=== PATIENT | male | born 1990 | race Caucasian/White ===

== ENCOUNTER 2021-04-19 13:05 | Outpatient (CLI) | payer OTHER, SELFPAY ==
--- NOTE | 2021-04-19 13:11 | CT_ITS ---
HISTORY: CALCULUS OF KIDNEY. TECHNIQUE: Helically acquired images were obtained of the abdomen and pelvis without oral or IV contrast as per renal stone protocol. A radiation dose optimization technique was used for this scan. # of images incl. paperwork: [phone]. COMPARISON: None. FINDINGS: LUNG BASES: Clear. BOWEL: Bowel including appendix nondilated. No focal pericolonic inflammatory change observed. PERITONEUM: No significant ascites. LIVER/BILIARY TRACT: Unremarkable liver.Gallbladder present. SPLEEN: Non-enlarged. PANCREAS: No peripancreatic inflammation. KIDNEYS AND URETERS: Minimal left hydronephrosis and perinephric stranding secondary to a 2 mm distal ureteral calculus. No right nephrolithiasis or obstructing ureterolithiasis. ADRENAL GLANDS: Non-enlarged. VESSELS: No abdominal aortic aneurysm. PELVIC ORGANS: Unremarkable. BONES: Intact. CT/Abdomen/Pelvis without Cont IMPRESSION: Very mild left hydronephrosis secondary to a 2 mm distal ureteral calculus. Individualized dose optimization techniques were used for this CT. at 1343 Reported and signed by: Ama Crowe MD Electronically Signed: Ama Crowe MD at 13:42 EST ,
== END 2021-04-19 23:59 | disposition home or self-care (01) ==
PROVIDERS: Referring Provider Urology; Visit Provider Urology
DX: N20.0 Calculus of kidney (principal)
CPT/HCPCS: 74176

== ENCOUNTER 2021-04-25 06:08 | Day surgery (SDC) | payer OTHER, SELFPAY ==
[2021-04-25] VITALS (8 sets, daily range): BP systolic 107–123; BP diastolic 70–87; PULSE 49–76; RESP 8–18; TEMP 36.5–36.9; O2SAT 53–100; BMI 26.6
[2021-04-25] MEDS: Lactated Ringers 1,000 ML 30 ML IV (07:04)
[2021-04-25] MEDS: Cefazolin 2 GM in 0.9% Normal Saline 100 ML IV (08:46)
--- NOTE | 2021-04-25 08:50 | CALC_PTH ---
PATIENT: KRISSY SCHWARTZ [place] [facility] [place][id number] AGE/SX: 30/M ROOM: RE04/25/[address]: Dr. Dewey Godfrey MD : 1990 BED: DIS: 04/25/2021 SPEC #: [id number] RECD: 04/25/21 10:22 STATUS: EVA HOLLANDKarina #: [id number] VASILIY: 04/25/21 08:[address]: Dewey Godfrey DEPT: SURGICAL PATHOLOGY RECD BY: Tootie Patel ENTERED: 04/25/21 12:06 SP TYPE: Calculi OTHR DR: Enma Primary Care Phys Tissues: CALCULI Procedures: Surgery Specimen Level I HEADER OPERATION: Ureteroscopy, basket extraction of left ureteral stone PRE-OP DIAGNOSIS: Left ureteral calculi TISSUE SUBMITTED: Left ureteral calculi for analysis GROSS DIAGNOSIS Fragments of stone, clinically left ureteral calculi, submitted for analysis. SJ:calli 04/26/2021 COMMENT The calculus is submitted in its entirety for chemical stone analysis. The results from this study will be reported separately. GROSS DESCRIPTION Received without fixative labeled with the patient's name and designated left ureteral calculi. The specimen consists of two irregular light del angel fragments of stone measuring in aggregate 0.2 x <0.1 x <0.1 cm. The entire specimen is submitted for stone analysis. / AM:calli 04/25/2021 CPT: 99789
--- NOTE | 2021-04-25 09:19 | PCM.HP.STD ---
HPI - General HPI Narrative KRISSY SCHWARTZ, is a 30 M who presents distal left ureteral calculi PFSH Medical History (Updated 04/25/21 @ 09:[address] Dewey Godfrey MD) Alcohol use Anxiety Asthma Back pain CPAP (continuous positive airway pressure) dependence Depression History of IBS Non-smoker Shortness of breath on exertion Syncope Wears dentures Wears glasses Home Medications tramadol 50 mg PO Q6H PRN 04/23/21 [History Last Taken Unknown] cephalexin 500 mg PO BID #6 cap 04/25/21 [Rx Last Taken Unknown] oxycodone-acetaminophen 1 tab PO Q6H PRN 7 Days #14 tab 04/25/21 [Rx Last Taken Unknown] phenazopyridine [Pyridium] 100 mg PO TID PRN #10 tab 04/25/21 [Rx Last Taken Unknown] Allergy/AdvReac Type Severity Reaction Status Date / Time No Known Allergies Allergy Verified 04/25/21 06:44 Surgical History (Updated 04/23/21 @ 11:30 by Katelin Bourgeois) Hx of colonoscopy Social History Smoking Status: Never smoker Vital Signs Vital Signs Vital Signs: 04/25/21 06:52 Temperature 97.9 F Temperature Source Temporal Pulse Rate 49 L Respiratory Rate 16 Respiratory Pattern Normal Blood Pressure 116/75 Blood Pressure Mean 88 Blood Pressure Source Monitor Blood Pressure Position Semi-Fowlers Blood Pressure Location Right Arm Pulse Ox 100 Oxygen Delivery Method Room Air Weight Weight: 79.379 kg Body Mass Index (BMI) 26.6
--- NOTE | 2021-04-25 09:21 | PCM.DC ---
Discharge Instructions Diet Discharge Diet: No restrictions Activity Discharge Activity: Return to Normal Activity and May Not Drive (while taking narcotic pain medications.) Dressing / Incision Call your doctor if you observe: Fever of 101 or Higher Follow Up Care Please Follow Up With: Dewey Godfrey MD When: Call [phone] for an appointment Test Results: Test results from this visit will be discussed in further detail at your follow-up appointment, if applicable. Discharge Plan Admission Primary Reason for Your Visit: ureteroscopy remove stone and stent Attending Provider: Dewey Godfrey Primary Care Provider: Care Physician,Enma Primary Discharge Orders/Prescriptions Prescriptions: New cephalexin 500 mg capsule 500 mg PO BID Qty: 6 RF: 0 phenazopyridine [Pyridium] 100 mg tablet 100 mg PO TID PRN (Reason: pain) Qty: 10 RF: 0 oxycodone-acetaminophen 5-325 mg tablet 1 tab PO Q6H PRN (Reason: pain) 7 Days Qty: 14 RF: 0 No Action tramadol 50 mg Tablet 50 mg PO Q6H PRN (Reason: Pain) RF: 0 Referrals / Follow Up: Dewey Godfrey MD [STAFF PHYSICIAN] - Care Physician,No Primary [Primary Care Provider] - Disposition Disposition (needs filled in before D/C Order can be placed): Home, Self Care
--- NOTE | 2021-04-25 09:22 | PCM.OPRPT ---
Report of Operation Date of Procedure: 04/25/21 Pre-Operative Diagnosis: Left ureteral stricture, left ureteral calculi Post-Operative Diagnosis: Same Surgery/Procedure Performed:: Cystoscopy balloon dilation of the ureteral stricture, ureteroscopy basket extraction of stone and placement of stent Description of Surgical Findings:: This is a patient who presents to the hospital for treatment for an obstructing distal ureter calculi. I discussed with the patient how the surgery would be performed and we reviewed the risks and benefits of the surgery. The risk and benefits include the risk of failure to remove the stone completely and that the patient may need multiple procedures. We discussed the risk of an infection, the risk of bleeding. We discussed the very rare risk of serious complicated injury to the ureter. The patient understands that if the stone is not able to be removed safely that we may abort the procedure and place a stent. After full discussion and all questions address with the patient the consent form was signed the side was marked appropriately and the patient was taken back to the operating room for the procedure. The patient was taken back to the operating room. After induction of anesthesia by the anesthesiology team the patient was placed in dorsolithotomy position. The genitals were prepped and draped in usual sterile fashion. I went into the bladder with a 21 [place] rigid cystourethroscope through the urethra. Upon entering the bladder I inspected the trigone the left and right ureteral orifice and the bladder itself. I then cannulated the LEFT ureteral orifice and advanced a 0.038 Glidewire up into the kidney. Then over the Glidewire I advanced a 5 Fr Ureteral catheter and performed a retrograde pyelogram with about 10cc of contrast, to delineate the anatomy and identify the stone location. Then a ureteral balloon dilator was advanced over the wire and the distal ureter was balloon dilated with a 12 Fr x 5cm balloon dilator. After 3 minutes of dilating the ureter the balloon was backloaded off the 0.038 glidewire then the safety wire was left in place. I then placed a second 0.038 Guidewire as a working wire and over the working 0.038 guidewire I went in with the kd rigide 7.5fr ureteroscope. I was able to go inside with the 7.5Fr kd rigid utereroscope and I pulled out the working guidewire and then through the 7.5 fr simirigid ureteroscope I engage the 3mm stone in the distal ureter with a basket and pulled the stone out of the ureter. A retrograde pyelogram was performed with 10cc of contrast and no extravasation of contrast or perforation was identified in the ureter there was some mild irritation of the ureter where the stone was located. I then backed out of the ureter left the wire in place and then over the 0.038 guidewire I placed a double coiled pigtail ureteral stent. The ureteral stent was advanced over the 0.038 guidewire under direct fluoroscopic guidance and direct cystoscopic visual guidance, once the stent was in good position I pulled the wire and the stent coiled in the kidney and bladder in good position. I then drained the patient's bladder and the cystoscope was removed and the patient was taken back to the recovery room in good position. The patient was given discharge instructions to call the office for instructions on when to come to the office to have the stent removed. Surgeon: zari Type of Anesthesia: General Drains: stent Admit VTE Documentation VTE Present on Admission: No VTE Mechan Device Prophylaxis: SCD's VTE Pharm Prophylaxis ordered?: No
[2021-04-25] MEDS: Ketorolac 30 MG/ML Syringe IV (10:18)
[2021-04-25] MEDS: Acetaminophen 325 MG Tablet PO (10:58)
[2021-04-25] MEDS: oxyCODONE 5 MG Tablet PO (10:58)
== END 2021-04-25 23:59 | disposition home or self-care (01) ==
LOC: SDC 06:13 → AC 06:14
PROVIDERS: Referring Provider Urology; Visit Provider Urology
PROC: 0TJ98ZZ Inspection of Ureter, Via Natural or Artificial Opening Endoscopic (ICD-10-PCS; CPT 52352; principal; 2021-04-25 08:40)
DX: N20.1 Calculus of ureter (principal); J45.909 Unspecified asthma, uncomplicated; F32.A Depression, unspecified; Z99.89 Dependence on other enabling machines and devices; G47.30 Sleep apnea, unspecified
CPT/HCPCS: 52352; 50706; 00918; 76000; 82360; 88300; J7120; C1769; C2617; J2405

== ENCOUNTER 2022-05-02 09:39 | Emergency (ER) | payer OTHER, SELFPAY ==
[2022-05-02 09:40] VITALS: BP 125/85; PULSE 63; RESP 16; TEMP 36.3; O2SAT 98; BMI 28.0
--- NOTE | 2022-05-02 09:57 | RAD_ITS ---
STUDY: X-RAY CHEST REASON FOR EXAM: Male, 31 years old. Cough, intermittent wheezing neg COVID and influen TECHNIQUE: PA and lateral views of the chest. COMPARISON: None. FINDINGS: The lungs are clear and expanded. There is no demonstrated pleural abnormality. Normal size heart. Normal mediastinum and zo. Normal visualized pulmonary arteries. Normal visualized aortic arch and descending thoracic aorta. Normal visualized thoracic spine. Normal visualized ribs, clavicles, and shoulders. There is no demonstrated abnormality of the visualized soft tissue structures of the upper abdomen. RAD/Chest PA and Lateral IMPRESSION: Normal x-ray examination of the chest. Electronically Signed: Wayne Scott MD at 10:28 EST ,
[2022-05-02 10:18] LABS: Absolute Lymphocyte Count 1.74 X10^3/uL (0.83-4.51); Absolute Neutrophil Count 3.8 X10^3/uL (2.0-7.7); Basophil# 0.03 X10^3/uL; Basophil% 0.5 % (0-1); Eosinophil# 0.12 X10^3/uL; Hematocrit 46.9 % (40-54); Hemoglobin 16.7 g/dL (13.0-16.5); Lymphocyte # 1.74 X10^3/ul (0.83-4.51); Lymphocyte % 28.4 % (19-41); Mean Corp Hgb Conc 35.6 g/dL (32-36); Mean Corpuscular Hgb 29.9 pg (27.0-32.0); Mean Corpuscular Volume 83.9 fL (80-94); Mean Platelet Vol. 9.8 fl (6.2-12.0); Monocyte# 0.46 X10^3/uL; Monocyte% 7.5 % (0-10); NRBC Flagged by Analyzer 0 % (0-5); Neutrophil # 3.77 X10^3/uL (2.7-7.7); Neutrophil % 61.4 % (47-70); Platelet Count 200 K/mm3 (150-450); RBC Distribution Width CV 12.3 % (11.6-14.6); RBC Distribution Width SD 37.2 fl (35.1-43.9); Red Blood Count 5.59 M/mm3 (4.6-6.2); White Blood Count 6.1 K/mm3 (4.4-11.0)
[2022-05-02 10:33] LABS: ALB/GLOB Ratio 1.2 RATIO (0.9-2.4); AST(SGOT) 28 U/L (15-37); Alanine Aminotransfer ALT/SGPT 67 U/L (16-61); Alkaline Phosphatase 100 U/L (45-117); Anion Gap 4 (5-15); BUN 14 mg/dL (7-18); BUN/Creat Ratio 14.4 RATIO (10-20); Chloride 109 mmol/L (98-107); Creatinine, Serum 0.97 mg/dL (0.70-1.30); EST Glomerular Filtration Rate 96 mL/min (>60); Est Glom Filt Rate - Afr Amer 116 mL/min (>60); Estimated Creatinine Clearance 107.73 ml/min; Globulin 3.2 g/dL (2.2-4.2); Glucose 107 mg/dL (74-106); Potassium 4.5 mmol/L (3.5-5.1); Protein, Total 7.2 g/dL (6.4-8.2); Sodium Level 142 mmol/L (136-145)
--- NOTE | 2022-05-02 10:50 | EDS_ITS ---
HPI History of Present Illness Chief Complaint: Cough Detail of Chief Complaint: Respiratory and GI symptoms Informant: patient Onset/Context/Timing Onset: Weeks Context: Sudden Onset Timing: Intermittent and Waxes and wanes Quality: Cough and shortness of breath and abdominal pain left side with diarrhea Location: Sharp left-sided abdominal pain Current Severity: Mild Maximum Severity: Moderate Worsened by: Nothing specific Relieved by: Nothing Associated Symptoms Associated Symptoms: Thirst and orthostatic symptoms Narrative Narrative: Patient is a 31-year-old male who recently relocated from the [facility]. He presents because of multiple symptoms. [facility] because he has multiple symptoms. Patient denies subjective or objective fever. Patient denies headache, visual, ocular auditory symptoms. Patient denies ear pain, ringing's ears or drainage from his ears. Patient reports mild congestion. He does have a cough. His cough is essentially nonproductive. He denies pleuritic pain. He denies hemoptysis. He denies history of VTE. He denies leg pain, swelling or discoloration. Patient states he has had left-sided intermittent sharp achy abdominal pain for the past couple of weeks. He does report diarrhea. He states she has a history of IBS. He reports 6-10 stools a day. He denies blood or mucus. He denies history of ulcerative colitis or Crohn's disease. He denies family history of inflammatory bowel disorder. He denies history of pancreatitis. He denies intolerance to greasy or fried foods. He does report history of renal/ureterolithiasis. This pain is different. There is no history of trauma. He has not noted any rash or lesions. Prior similar symptoms: No Recent Illness/[facility]ospitalization: [facility] Medical History Alcohol use Anxiety Asthma Back pain Contact with and (suspected) exposure to other viral communicable diseases CPAP (continuous positive airway pressure) dependence Depression History of IBS LUQ abdominal pain Non-smoker Shortness of breath on exertion Syncope Wears dentures Wears glasses Home Medications dextroamphetamine-amphetamine ER 20 mg 24hr capsule,extend release (Adderall XR) 20 mg PO DAILY 05/02/22 [History Last Taken Unknown] Allergy/AdvReac Type Severity Reaction Status Date / Time No Known Allergies Allergy Verified 05/02/22 08:16 Surgical History Hx of colonoscopy Social History (Updated 05/02/22 @ 10:[address] Dominic Pérez MD) household members: significant other Smoking Status: Never smoker substance use type: does not use ROS ROS ED Constitutional Constitutional ED: Reports other Details: Patient reports recent weight gain. ; Denies chills, fever(s), subjective, sweats or weight loss Eyes Eyes: Denies blurry vision, change in vision or diplopia ENT ENT ED: Denies ear pain, rhinorrhea or sore throat Cardiovascular Cardiovascular: Denies chest pain, orthopnea, palpitations, paroxysmal nocturnal dyspnea or racing heartbeat Respiratory/Chest Respiratory/Chest: Reports cough and dyspnea; Denies dyspnea on exertion, orthopnea, paroxysmal nocturnal dyspnea or sputum Gastrointestinal Gastrointestinal: Reports abdominal pain, diarrhea and nausea; Denies constipation, melena or vomiting Genitourinary Genitourinary ED: Reports other Details: Further tail in the HPI narrative. He denies pain in his scrotum or testicles. ; Denies dysuria, hematuria or urinary frequency Musculoskeletal Musculoskeletal: Reports other Details: He denies flank pain. ; Denies arthralgias, back pain, myalgias or neck pain Integumentary Denies Abrasions or rash Neurologic Neurologic: Denies headache(s), paresthesias or weakness Psychiatric Psychiatric: Denies anxiety or depression Endocrine Endocrinology: Denies cold intolerance or heat intolerance Hematologic/Lymphatic Hematologic/Lymphatic: Reports systems reviewed and no addt'l complaints, except as documented EXAM Physical Exam Const Vital Signs: 05/02/22 09:40 05/02/22 09:48 Temperature 97.3 F L Temperature Source Temporal Pulse Rate 63 Respiratory Rate 16 Respiratory Effort Normal Non-Labored Blood Pressure 125/85 H Blood Pressure Mean 98 Pulse Ox 98 Oxygen Delivery Method Room Air Positive well nourished and well developed General Appearance ED: well developed and NAD; Negative for cyanotic or diaphoretic HEENT Reports moist mucous membranes HEENT Narrative: Head is atraumatic and normocephalic. Nares are patent. Ears are normal. Posterior pharynx is normal. Eyes PERRL and EOMs intact bilaterally General Eye ED: Negative for pale conjunctiva or scleral icterus Neck no lymphadenopathy, supple and no JVD Chest Wall inspection of chest normal and palpation of chest normal Resp normal respiratory effort and clear to auscultation bilaterally Cardio regular rate, regular rhythm, S1 normal heart sound, S2 normal heart sound and no murmurs GI normal to inspection, nondistended, normoactive bowel sounds, non-tender, non-distended and no masses; Negative for hepatosplenomegaly Palpation: soft Back/Spine no CVA tenderness Cervical Spine: Negative for cervical spine tenderness Thoracic Spine / Upper Back: Negative for thoracic spinal tenderness Lumbar Spine / Lower Back: lumbar spinal tenderness Extremity normal to inspection General Extremety ED: Yes tenderness; Negative for edema General Extremity: Negative for edema Neuro oriented x3, CN's II-XII intact bilaterally and no sensory deficits noted Psych mental status grossly normal Skin no rashes or lesions noted, no wounds and skin turgor normal MDM MDM MDM Narrative Medical decision making narrative: History of diarrhea for 2 to 3 weeks will obtain basic metabolic panel to assess renal function and evaluate for hypokalemia. CBC was obtained to assess white count and differential as well as H&H. Patient reports cough chest x-ray was obtained to assess for pneumonia. Because patient has history of alcohol use daily lipase was ordered as well as transaminases. Lab Data Attestation: I reviewed the patient's lab results. Lab results narrative: CBC is normal. Comprehensive metabolic panel reveals slight elevation of chloride, 109. Glucose is slight elevated at 107. ALT also slightly elevated at 67 Labs: Laboratory Results - last 24 hr 05/02/22 05/02/22 10:05 10:05 WBC 6.1 RBC 5.59 Hgb 16.7 H Hct 46.9 MCV 83.9 MCH 29.9 MCHC 35.6 RDW Std Deviation 37.2 RDW Coeff of Christoph 12.3 Plt Count 200 MPV 9.8 Immature Gran % (Auto) 0.200 Neut % (Auto) 61.4 Lymph % (Auto) 28.4 Fisher % (Auto) 7.5 Eos % (Auto) 2.0 Baso % (Auto) 0.5 Absolute Neuts (auto) 3.8 Absolute Lymphs (auto) 1.74 Nucleated RBC % 0 Sodium 142 Potassium 4.5 Chloride 109 H Carbon Dioxide 29.0 Anion Gap 4 L BUN 14 Creatinine 0.97 Estim Creat Clear Calc 107.73 Est GFR (MDRD) Af Amer 116 Est GFR (MDRD) Non-Af 96 BUN/Creatinine Ratio 14.4 Glucose 107 H Calcium 9.0 Total Bilirubin 1.00 AST 28 ALT 67 H Alkaline Phosphatase 100 Total Protein 7.2 Albumin 4.0 Globulin 3.2 Albumin/Globulin Ratio 1.2 Radiography Chest X-Ray - ED: 2 View and Read by ED Physician (2 view chest x-ray independent reviewed interpreted by me as negative. Cardiac silhouette size normal. Perihilar structures normal. Lung parenchyma normal. Osseous structures are normal.) Diagnostic Testing: Clinical Impression(s) from Imaging Studies Chest X-Ray 05/02/22 09:57 IMPRESSION: Normal x-ray examination of the chest. Electronically Signed: Wayne Scott MD at 10:28 EST , Treatment and Re-Evaluation Narrative: Patient was sitting on the examination cot in no distress when I entered the room to inform him of his lab results at 1125. Patient was informed the cause of his abdominal pain is unknown. His chest x-ray is normal. Since he does not have a primary care physician in the area he is referred to Dr. Hopkins and referred to Dr. Marie because of chronic diarrhea. Discharge Plan Triage Chief Complaint: Cough Other Complaint: Diarrhea Flank Pain ED Provider: Dominic Pérez Dx/Rx/DC Orders Clinical Impression: Upper respiratory infection with cough and congestion, Left sided abdominal pain of unknown cause, Chronic diarrhea Instructions: ED Diarrhea, Unknown Cause, ED URI, Viral, No Abx (Adult) Prescriptions: No Action dextroamphetamine-amphetamine [Adderall XR] 20 mg capsule,extended release 24hr 20 mg PO DAILY Label Comments: TAKE 1 CAPSULE BY MOUTH EVERY DAY IN THE MORNING Primary Care Provider: Care Physician,No Primary Referrals: Reba Frances MD [Med Staff - Oil Analyst] - 10-14 Days if not better Isidoro Marie DO [Med Staff - Active Staff] - 1-2 Weeks Care Physician,No Primary [Primary Care Provider] - Disposition Disposition: Home, Self Care
--- NOTE | 2022-05-02 11:39 | CM.ED ---
ote Referral Source: Case Find Referral Reason: No Primary Care Physician (PCP) SW reviewed chart and noted that patient has no PCP. SW provided patient with list of [facility] and [facility] Physician List for reference. No other issues or concerns voiced at this time. SW remains available for any additional needs. Plan: Provided patient with PCP information Briana HERRERA
[2022-05-02 11:47] VITALS: BP 110/72; BP 112/69; BP 119/78; PULSE 57; PULSE 62; PULSE 90
[2022-05-02 11:55] VITALS: BP 119/78; PULSE 61; RESP 18; O2SAT 97
== END 2022-05-02 11:56 | disposition home or self-care (01) ==
PROVIDERS: Emergency Provider Emergency Medicine; Visit Provider Emergency Medicine
DX: J06.9 Acute upper respiratory infection, unspecified (principal); R19.7 Diarrhea, unspecified; R06.02 Shortness of breath; R10.9 Unspecified abdominal pain; R05.9 Cough, unspecified
CPT/HCPCS: 71046; 80053; 85025; 99284